=== PATIENT | male | born 1985 | race Caucasian/White ===

== ENCOUNTER 2017-12-04 18:52 | Emergency (ER) | payer OTHER ==
[~2017-12-04] VITALS: Ht 182.9 cm; Wt 96.2 kg
[~2017-12-04 18:52] MED LIST: APAP500; BACTRIM DS TAB1 EACH PO; CARAFATE 11 GM/10 M1 PO; CLEOCIN HCL150 MG PO; COLACE100 MG PO; EAR DROPS15 ML OT; ENDOCET 10-3251 EACH PO; FLEXERIL PO; FLONASE 0.05%50 MCG NASAL; INVAGA; INVEGA SUS156 MG/1 M IM; MEDROL DOSPAK21 TAB PO; MEDROLDOSEPACK PO; MUCOSA400 MG PO; NEXIUM 40 MG CA40 M1 PO; NORCO 5-325 TA1 EACH PO; NORFLEX100 MG PO; PERCOCET 5-3251 EACH PO; PHENERGAN 25 MG25 M1 PO; PHENERGAN50 MG RC; PREDNISONE 20 M20 M1 PO; PREDNISONE 20 M20 MG PO; PRILOSEC 20 MG20 MG PO; PROVENTIL HFA6.7 G1 INH; TESSALON PERLE100 MG PO; VENTOLIN HFA 1818 GM INH; XANAX1 MG PO; ZOFRAN ODT4 MG PO; ZPAK PO
[2017-12-04] MEDS ORDERED: NORFLEX100 MG PO (20:21)
[2017-12-04] MEDS ORDERED: PREDNISONE 10 M10 MG PO (20:21)
== END 2017-12-04 20:44 | disposition home or self-care (01) ==
LOC: ER 18:52
DX: S39.012A Strain of muscle, fascia and tendon of lower back, initial encounter (principal); G89.29 Other chronic pain; F17.210 Nicotine dependence, cigarettes, uncomplicated; M19.90 Unspecified osteoarthritis, unspecified site; J45.909 Unspecified asthma, uncomplicated; F31.9 Bipolar disorder, unspecified; K58.9 Irritable bowel syndrome, unspecified; K21.9 Gastro-esophageal reflux disease without esophagitis; Z88.0 Allergy status to penicillin; Z88.6 Allergy status to analgesic agent; Z88.8 Allergy status to other drugs, medicaments and biological substances; X50.0XXA Overexertion from strenuous movement or load, initial encounter; Y92.89 Other specified places as the place of occurrence of the external cause; Y93.89 Activity, other specified; Y99.8 Other external cause status